=== PATIENT | male | born 1940 | race Caucasian/White ===

== ENCOUNTER 2021-10-30 09:20 | Emergency (ER) | payer MEDICARE | END 2021-10-30 10:37 | disposition home or self-care (01) | LOC: BURERS 09:20 | DX: R51.9 Headache, unspecified (principal); I10 Essential (primary) hypertension; Z86.73 Personal history of transient ischemic attack (TIA), and cerebral infarction without residual deficits | CPT/HCPCS: 99283 ==

== ENCOUNTER 2021-12-29 12:14 | Emergency (ER) | payer MEDICARE ==
[2021-12-29] MEDS ORDERED: Lidocaine 4% Cream 5 GM TUBE w/ Tegaderm ONE (12:35)
[2021-12-29] MEDS ORDERED: Boostrix 0.5 ML (Tdap) VIAL ONE ×2 (12:35→14:29)
== END 2021-12-29 14:10 | disposition home or self-care (01) ==
LOC: BURERS 12:14
DX: S01.21XA Laceration without foreign body of nose, initial encounter (principal); S16.1XXA Strain of muscle, fascia and tendon at neck level, initial encounter; S13.4XXA Sprain of ligaments of cervical spine, initial encounter; W01.10XA Fall on same level from slipping, tripping and stumbling with subsequent striking against unspecified object, initial encounter; Z79.899 Other long term (current) drug therapy; I10 Essential (primary) hypertension
CPT/HCPCS: 12011; 70450; 70486; 72125; 90471; 90715

== ENCOUNTER 2022-01-05 10:29 | Emergency (ER) | payer MEDICARE ==
[2022-01-05] MEDS ORDERED: Bacitracin 1 PK ONE (11:35)
== END 2022-01-05 11:35 | disposition home or self-care (01) ==
LOC: BURERS 10:29
DX: S01.21XD Laceration without foreign body of nose, subsequent encounter (principal); I10 Essential (primary) hypertension; Z86.73 Personal history of transient ischemic attack (TIA), and cerebral infarction without residual deficits; W19.XXXD Unspecified fall, subsequent encounter

== ENCOUNTER 2025-06-29 08:06 | Emergency (ER) | payer MEDICARE, OTHER ==
[2025-06-29 09:03] LABS: Hematocrit 37.5 % (42.0-52.0); Hemoglobin 13.8 g/dL (14.0-18.0); Mean Corpuscular Hemoglobin 28.9 pg (27.0-31.0); Mean Corpuscular Volume 78.3 fl (78.0-98.0); Platelet Count 138 10x3/uL (130-400); Red Blood Cell (RBC) Count 4.79 mill/uL (4.70-6.10); White Blood Cell (WBC) Count 10.5 10x3/uL (4.8-10.8)
[2025-06-29] MEDS ORDERED: Cephalexin 250 MG CAP ONE (09:06)
[2025-06-29 09:10] LABS: ALT (SGPT) 17 U/L (Less than 45); AST (SGOT) 12 U/L (11-34); Albumin 3.8 g/dL (3.1-4.5); Alkaline Phosphatase 101 U/L (40-110); Anion Gap 19 mmol/L (10-20); BUN (Urea Nitrogen) 63 mg/dL (8.4-25.7); Bilirubin, Total 0.4 mg/dL (0.3-1.2); Calc. Creatinine Clearance 0 mL/min (70-130); Calcium 9.1 mg/dL (7.8-10.44); Carbon Dioxide 17 mmol/L (23-31); Chloride 104 mmol/L (98-107); Globulin 3.5 g/dL (2.4-3.5); Glucose 218 mg/dL (83-110); Potassium 4.3 mmol/L (3.5-5.1); Sodium 136 mmol/L (136-145)
[2025-06-29 09:19] LABS: #Basophils 0.1 thou/uL (0.0-0.2); #Eosinophils 0.1 thou/uL (0.0-0.7); #Lymphocytes 2.1 thou/uL (1.20-3.40); #Monocytes 0.6 thou/uL (0.11-0.59); #Neutrophils 7.6 thou/uL (1.40-6.50); %Basophils 1.1 % (0.0-1.0); %Eosinophils 1.0 % (0.0-10.0); %Lymphocytes 20.1 % (21.0-51.0); %Monocytes 5.7 % (0.0-10.0); %Neutrophils 72.1 % (42.0-75.0); MDiff Complete? YES; Platelet Adequacy Comment Appears Adequate
[2025-06-29 09:56] LABS: Bicarbonate (HCO3v) 20.4 mmol/L (22.0-28.0); CO2 Tension (PvCO2) 34.1 mmHg (42.0-51.0); Calcium, Ionized 1.22 mmol/L (1.15-1.33); Chloride 107 mmol/L (98-107); Hemoglobin - Calc 14.8 g/dL (14.0-18.0); Potassium 4.3 mmol/L (3.5-5.1); Sodium 135 mmol/L (138-145); T. Carbon Dioxide 21.5 mmol/L (22.0-28.0); vO2 Saturation-calc 87.8 % (60.0-85.0)
[2025-06-29 10:37] LABS: Glucose, Urine (Dipstick) >=1000 mg/dL (Negative); Leukocyte Negative (Negative); Protein, Urine (Dipstick) 30 mg/dL (Neg-Trace); Specific Gravity, Urine 1.025 (1.005-1.030)
[2025-06-29 10:47] LABS: CAUTI Indications for Culture Dysuria,urgency,freq; RBC/HPF 0-3 HPF (0-3); WBC/HPF 0-3 HPF (0-3); Yeast-Budding 1+ HPF (None Seen)
[2025-06-29 10:48] LABS: Bacteria/HPF 3+ HPF (None Seen)
[2025-06-29 10:49] LABS: Urine Culture Reflex No No
== END 2025-06-29 11:24 | disposition home or self-care (01) ==
LOC: BURERS 08:06
DX: E11.65 Type 2 diabetes mellitus with hyperglycemia (principal); E11.22 Type 2 diabetes mellitus with diabetic chronic kidney disease; I12.9 Hypertensive chronic kidney disease with stage 1 through stage 4 chronic kidney disease, or unspecified chronic kidney disease; N18.9 Chronic kidney disease, unspecified; L89.152 Pressure ulcer of sacral region, stage 2; Z86.73 Personal history of transient ischemic attack (TIA), and cerebral infarction without residual deficits; Z95.0 Presence of cardiac pacemaker; Z79.899 Other long term (current) drug therapy; Z79.4 Long term (current) use of insulin; Z79.02 Long term (current) use of antithrombotics/antiplatelets
CPT/HCPCS: 36416; 80053; 81001; 82010; 82330; 82803; 85025; 96360; 36415-59

== ENCOUNTER 2025-08-10 01:29 | Emergency (ER) | payer MEDICARE ==
[2025-08-10 02:12] LABS: #Basophils 0.0 thou/uL (0.0-0.2); #Eosinophils 0.1 thou/uL (0.0-0.7); #Lymphocytes 1.5 thou/uL (1.20-3.40); #Monocytes 0.7 thou/uL (0.11-0.59); #Neutrophils 8.5 thou/uL (1.40-6.50); %Basophils 0.3 % (0.0-1.0); %Eosinophils 0.9 % (0.0-10.0); %Lymphocytes 13.7 % (21.0-51.0); %Monocytes 6.0 % (0.0-10.0); %Neutrophils 79.1 % (42.0-75.0); Hematocrit 43.1 % (42.0-52.0); Hemoglobin 13.5 g/dL (14.0-18.0); Mean Corpuscular Hemoglobin 28.6 pg (27.0-31.0); Mean Corpuscular Volume 91.5 fl (78.0-98.0); Platelet Count 146 10x3/uL (130-400); Red Blood Cell (RBC) Count 4.71 mill/uL (4.70-6.10); White Blood Cell (WBC) Count 10.8 10x3/uL (4.8-10.8)
[2025-08-10 02:24] LABS: CO2 Tension (PvCO2) 35.3 mmHg (42.0-51.0)
[2025-08-10 02:25] LABS: Bicarbonate (HCO3v) 22.0 mmol/L (22.0-28.0)
[2025-08-10 02:26] LABS: Chloride 107 mmol/L (98-107); Hemoglobin - Calc 13.8 g/dL (14.0-18.0); Potassium 5.2 mmol/L (3.5-5.1); Sodium 134 mmol/L (138-145); T. Carbon Dioxide 23.1 mmol/L (22.0-28.0); vO2 Saturation-calc 85.0 % (60.0-85.0)
[2025-08-10 02:27] LABS: Calcium, Ionized 1.23 mmol/L (1.15-1.33)
[2025-08-10 02:37] LABS: ALT (SGPT) 18 U/L (Less than 45); AST (SGOT) 10 U/L (11-34); Albumin 3.8 g/dL (3.1-4.5); Alkaline Phosphatase 98 U/L (40-110); Anion Gap 17 mmol/L (10-20); BUN (Urea Nitrogen) 36 mg/dL (8.4-25.7); Bilirubin, Total 0.4 mg/dL (0.3-1.2); Calc. Creatinine Clearance 0 mL/min (70-130); Calcium 9.1 mg/dL (7.8-10.44); Carbon Dioxide 20 mmol/L (23-31); Chloride 103 mmol/L (98-107); Globulin 3.2 g/dL (2.4-3.5); Magnesium 1.9 mg/dL (1.6-2.6); Potassium 5.4 mmol/L (3.5-5.1); Sodium 135 mmol/L (136-145)
[2025-08-10 02:42] LABS: Troponin I 0.024 ng/mL (< 0.028)
[2025-08-10 02:47] LABS: Glucose 430 mg/dL (83-110)
[2025-08-10 04:29] LABS: Bacteria/HPF None Seen HPF (None Seen); CAUTI Indications for Culture Dysuria,urgency,freq; RBC/HPF None Seen HPF (0-3); WBC/HPF None Seen HPF (0-3)
[2025-08-10 04:30] LABS: Glucose, Urine (Dipstick) >=1000 mg/dL (Negative); Leukocyte Negative (Negative); Protein, Urine (Dipstick) Negative (Neg-Trace); Specific Gravity, Urine 1.015 (1.005-1.030)
[2025-08-10 04:31] LABS: Urine Culture Reflex No No
[2025-08-10] MEDS ORDERED: Cephalexin 250 MG CAP ONE (06:00)
== END 2025-08-10 06:01 | disposition home or self-care (01) ==
LOC: BURERS 01:29
DX: E11.65 Type 2 diabetes mellitus with hyperglycemia (principal); L89.151 Pressure ulcer of sacral region, stage 1; I10 Essential (primary) hypertension; I69.342 Monoplegia of lower limb following cerebral infarction affecting left dominant side; Z79.899 Other long term (current) drug therapy; Z79.890 Hormone replacement therapy; Z95.0 Presence of cardiac pacemaker; Z95.5 Presence of coronary angioplasty implant and graft
CPT/HCPCS: 36416; 80053; 81001; 82330; 82435; 82803; 83735; 84132; 84295; 84484; 85014; 85025; 93005; 96360; 96361